=== PATIENT | male | born 1980 | race Caucasian/White ===

== ENCOUNTER 2016-12-09 20:14 | Emergency (ER) | payer SELFPAY ==
[~2016-12-09] VITALS: Ht 167.6 cm; Wt 77.1 kg
[2016-12-09 20:22] VITALS: BP 113/79
--- NOTE | 2016-12-09 20:36 | NUR ---
PT TAKEN TO BED 5
--- NOTE | 2016-12-09 20:36 | NUR ---
36Y M BIB FAMILY S/P FALL OCCURRED AT HOME TODAY WHEN PT CLIMBED AND FELL FROM 7FT WALL. PT STATES HE LANDED ON RIGHT ELBOW, AND RIGHT SIDE OF AB. PT STATES DIFFICULTY BREATHING. SMALL ABRASIONS NOTED TO THE LEFT FA. PT [id number]. DENIES ANY LOC.
--- NOTE | 2016-12-09 20:40 | NUR ---
Dr. Rodriguez evaluating patient at bedside.
[2016-12-09] MEDS ORDERED: NACL 0.9% 1,000 ML IV ONE (20:55)
[2016-12-09] MEDS ORDERED: ONDANSETRON 4 MG/2 ML VIAL IVP ONE (20:55)
[2016-12-09] MEDS ORDERED: MORPHINE SULFATE 4 MG/ML SYR IVP ONE (20:55)
--- NOTE | 2016-12-09 21:20 | NUR ---
X-Ray at bedside.
[2016-12-09 21:27] LABS: BASOPHILS # (AUTO) 0.4 K/uL (0.00-0.22); EOSINOPHILS # (AUTO) 0.2 K/uL (0-0.4); HEMATOCRIT 43.8 % (36-52); HEMOGLOBIN 14.4 g/dL (12.0-18.0); LYMPHOCYTES # (AUTO) 2.3 K/uL (2.0-11.5); LYMPHOCYTES % (AUTO) 24.4 % (20.5-51.1); MEAN CORPUSCULAR HEMOGLOBIN 30 pg (27-31); MEAN CORPUSCULAR HGB CONC 33 g/dL (33-37); MEAN CORPUSCULAR VOLUME 91 fL (80-94); MONOCYTES # (AUTO) 0.7 K/uL (0.8-1.0); MONOCYTES % (AUTO) 7.5 % (1.7-9.3); NEUTROPHILS # (AUTO) 5.9 K/uL (1.8-7.7); PLATELET COUNT (AUTO) 242 K/uL (140-450); RED BLOOD CELL COUNT(AUTO) 4.82 MIL/uL (4.20-6.10); RED CELL DISTRIBUTION WIDTH 11.7 % (11.6-13.7); WHITE BLOOD COUNT (AUTO) 9.5 K/uL (4.8-10.8)
[2016-12-09 21:29] LABS: ANION GAP 11.7 (8-16); CALCIUM 8.8 mg/dL (8.5-10.1); CREATININE 0.9 mg/dL (0.7-1.3); POTASSIUM 3.7 mmol/L (3.5-5.1)
--- NOTE | 2016-12-09 21:32 | NUR ---
PT RETURN FROM CT
[2016-12-09 21:35] LABS: TOTAL BILIRUBIN 0.4 mg/dL (0.0-1.0); TOTAL PROTEIN, SERUM 8.1 g/dL (6.4-8.2)
[2016-12-09 21:44] LABS: INR 1.1 (0.8-1.2); PROTHROMBIN TIME 10.7 secs (10.8-13.4)
--- NOTE | 2016-12-09 22:05 | NUR ---
ADMITTING DX: FALL EDUCATION PROVIDED TO PATIENT WITH ACKNOWLEDGEMENT ON INCENTIVE SPIROMETRY THERAPY (LUNG EXPANSION, PNEUMONIA PREVENTION) ENCOURAGED PATIENT FOR DEEP BREATHING DURING THERAPY PATIENT C/O OF RIGHT SIDED PAIN ASHOK/RN PROVIDED EDUCATION ON SPLINTING PATIENT TOLERATED INCENTIVE SPIROMETRY PROCEDURE WELL WITHOUT ADVERSE REACTIONS NOTED
--- NOTE | 2016-12-09 22:13 | NUR ---
IV removed, catheter intact and site benign. Applied folded 4x4 gauze and tape to stop bleeding.
[2016-12-09 22:27] VITALS: BP 112/71
--- NOTE | 2016-12-09 22:27 | NUR ---
Patient discharged with v/s stable. Written and verbal after care instructions given and explained. Patient alert, oriented and verbalized understanding of instructions. Ambulatory with steady gait. All questions addressed prior to discharge. ID band removed. Patient advised to follow up with PMD. Rx of [id number] Q4HR PRN, NAPROSYN 500MG PRN BID given. Patient educated on indication of medication including possible reaction and side effects. Opportunity to ask questions provided and answered.
== END 2016-12-09 22:27 | disposition home or self-care (01) ==
LOC: MED 20:14
DX: S20.20XA Contusion of thorax, unspecified, initial encounter (principal); W17.89XA Other fall from one level to another, initial encounter; Y93.89 Activity, other specified; Y92.89 Other specified places as the place of occurrence of the external cause; Y99.8 Other external cause status
CPT/HCPCS: 36415; 71010; 74176; 80053; 85025; 85610; 86886; 86900; 86901; 96361; 96374; 96375; 99285; J2270; J2405; J7030

== ENCOUNTER 2023-06-03 03:32 | Emergency (ER) | payer OTHER ==
[~2023-06-03] VITALS: Ht 165.1 cm; Wt 75.3 kg
[2023-06-03 03:38] VITALS: BP 122/82; PULSE 84; RESP 16; TEMP 97.8; O2SAT 99
[2023-06-03 06:04] VITALS: BP 122/82; PULSE 84; RESP 16; TEMP 97.8; O2SAT 99
== END 2023-06-03 06:04 | disposition left against medical advice (07) ==
LOC: MED 03:32
DX: M54.2 Cervicalgia (principal); Z53.21 Procedure and treatment not carried out due to patient leaving prior to being seen by health care provider
CPT/HCPCS: 99281